=== PATIENT | male | born 1940 | race Caucasian/White ===

== ENCOUNTER 2018-01-31 10:30 | Observation (INO) | payer OTHER, MEDICARE ==
[2018-01-31 11:17] LABS: Absolute Lymphocytes (CBC) 3.2 K/uL (0.7-4.9); Absolute Monocytes 2.4 K/uL (0.1-1.3); Basophils % 0.7 % (0-1.3); Eosinophils % 0.1 % (0-4.4); Hematocrit 46.2 % (39.6-49.0); MCV 89.3 fL (80-100); MPV 10.3 fL (7.6-11.3); Monocytes % 9.5 % (3.3-12.3); RBC Red Blood Cell Count 5.18 M/uL (4.33-5.43)
[2018-01-31 11:29] LABS: Protime INR 1.05
--- NOTE | 2018-01-31 11:32 | RAD REPORT ---
EXAM DESCRIPTION: RAD - Chest Single View - 01/31/2018 11:26 am CLINICAL HISTORY: hypotension, weakness Chest pain. COMPARISON: Chest Pa And Lat (2 Views) dated 02/08/2017; Chest Pa And Lat (2 Views) dated 08/18/2016; C HEST SINGLE VIEW dated 04/11/2013; CHEST PA AND LAT 2 VIEW dated 01/20/2009 FINDINGS: Portable technique limits examination quality. Mild linear subsegmental atelectasis in both lung bases. The heart is normal in size. No displaced fr actures. IMPRESSION: No acute intrathoracic process suspected.
[2018-01-31 11:35] LABS: Blood Morphology Comment NOT SEEN (NOT SEEN); Platelet Estimate ADEQ; Urine White Blood Cell Casts OK
[2018-01-31] MEDS ORDERED: NA CHLORIDE 0.9% 1,000 ML ONE (11:36)
[2018-01-31 11:42] LABS: ALT/SGPT 39 U/L (12-78); AST/SGOT 21 U/L (15-37); Albumin 3.2 g/dL (3.4-5.0); Alkaline Phosphatase 55 U/L (45-117); BUN Blood Urea Nitrogen 28 mg/dL (7-18); Bicarbonate 32 mmol/L (21-32); Bilirubin Direct 0.2 mg/dL (0-0.2); Bilirubin Total 0.7 mg/dL (0.2-1.0); CKMB Creatine Kinase MB < 1.0 ng/mL (0.3-3.6); Creatine Phosphokinase 36 U/L (39-308); Glucose Level 105 mg/dL (74-106); Magnesium 2.1 mg/dL (1.8-2.4); NT PRO-BNP 142 pg/mL (<450); Protein, Total 6.9 g/dL (6.4-8.2); Sodium Level 143 mmol/L (136-145)
[2018-01-31 11:54] LABS: Potassium 2.9 mmol/L (3.5-5.1)
--- NOTE | 2018-01-31 12:03 | EKG ---
Test Date: 2018-01-31 Test Time: 11:14:13 Honest [employer] Member: JUAN MEASUREMENT RESULTS: Intervals: Rate: 78 NV: 144 QRSD: 102 QT: 394 QTc: 449 Clay: P: 58 NV: 144 QRS: 19 T: 68 INTERPRETIVE STATEMENTS: Normal sinus rhythm Normal ECG Compared to ECG 02/08/2017 13:33:22 No significant changes Electronically Signed On 01-31-18 12:03:22 CDT by Lloyd Gonzalez
[2018-01-31] MEDS ORDERED: POTASSIUM CL SA 10 MEQ TAB PO ONE (12:18)
[2018-01-31] MEDS ORDERED: NS KCL 40MEQ 40 MEQ/1,000 ML BAG IV SCH (12:30)
--- NOTE | 2018-01-31 14:02 | ER ---
Nurse's Notes [facility] Name: Kale Kennedy Age: 77 yrs Sex: Male : 1940 Arrival Date: 01/31/2018 Time: 10:32 Bed 5 Private MD: Teto Hastings C Diagnosis: Dehydration;Hypokalemia;Weakness;Orthostatic hypotension;Elevated white blood cell count Presentation: 01/31 10:44 Presenting complaint: Patient states: was doing yardwork, when he became extremely sg dizzy and weak. reports having dizziness for several years but never this bad, went inside his home to take a BP, readings of 88/56, with the lowest being 72/54, denies pain or SOB, reports family hx of heart failure but no isssues of his own. Transition of care: patient was not received from another setting of care. Onset of symptoms was January 31, 2018. Risk Assessment: Do you want to hurt yourself or someone else? Patient reports no desire to harm self or others. Initial Sepsis Screen: Does the patient meet any 2 criteria? No. Patient's initial sepsis screen is negative. Does the patient have a suspected source of infection? No. Patient's initial sepsis screen is negative. Care prior to arrival: None. 10:44 Method Of Arrival: Ambulatory sg 10:44 Acuity: CAROLYNN 3 sg Historical: - Allergies: 10:33 No Known Allergies; sg - Home Meds: 10:47 Simvastatin Oral [Active]; Cimetidine Oral [Active]; Pulmicort Inhl [Active]; Combivent sg Inhl [Active]; metoprolol succinate oral oral [Active]; amlodipine oral [Active]; clopidogrel oral oral [Active]; - PMHx: 10:34 Asthma; GERD; Hypertension; CVA; sg - PSHx: 10:33 Appendectomy; Knee surgery; Hernia repair; sg - Immunization history:: Adult Immunizations unknown. - Social history:: Smoking status: Patient/guardian denies using tobacco. - Ebola Screening: : Patient negative for fever greater than or equal to 101.5 degrees Fahrenheit, and additional compatible Ebola Virus Disease symptoms Patient denies exposure to infectious person Patient denies travel to an Ebola-affected area in the 21 days before illness onset No symptoms or risks identified at this time. Screenin:00 Abuse screen: Denies threats or abuse. Denies injuries from another. Nutritional sv screening: No deficits noted. Tuberculosis screening: No symptoms or risk factors identified. Fall Risk None identified. Assessment: 11:00 General: Appears in no apparent distress. comfortable, well developed, Behavior is sv calm, cooperative, appropriate for age. Pain: Denies pain. Neuro: Level of Consciousness is awake, alert, obeys commands, Oriented to person, place, time, situation, Moves all extremities. Full function Gait is steady, Speech is normal, Reports lightheaded. Cardiovascular: Patient's skin is warm and dry. Pulses are 3+ in right radial artery and left radial artery Rhythm is sinus rhythm. Respiratory: Respiratory effort is even, unlabored, Respiratory pattern is regular, symmetrical. GI: Abdomen is flat. : No signs and/or symptoms were reported regarding the genitourinary system. EENT: No signs and/or symptoms were reported regarding the EENT system. Derm: Skin is pink, warm \T\ dry. Musculoskeletal: No signs and/or symptoms reported regarding the musculoskeletal system. 12:23 Reassessment: Patient appears in no apparent distress at this time. No changes from sv previously documented assessment. Patient and/or family updated on plan of care and expected duration. Pain level reassessed. Patient is alert, oriented x 3, equal unlabored respirations, skin warm/dry/pink. 12:45 Reassessment: Patient appears in no apparent distress at this time. Patient and/or sv family updated on plan of care and expected duration. Pain level reassessed. Patient is alert, oriented x 3, equal unlabored respirations, skin warm/dry/pink. Patient states symptoms have improved. 13:01 Reassessment: Pt given a food tray. sv 14:00 Reassessment: Patient appears in no apparent distress at this time. Patient and/or sv family updated on plan of care and expected duration. Pain level reassessed. Patient is alert, oriented x 3, equal unlabored respirations, skin warm/dry/pink. Patient states symptoms have improved. Vital Signs: 10:45 BP 109 / 69; Pulse 99; Resp 17; Pulse Ox 95% on R/A; Pain 0/10; sg 10:47 BP 118 / 64 Sitting; sg 10:49 BP 83 / 60 LA Standing; Pulse 117 MON; sg 11:00 BP 130 / 70 LA Sitting (auto/reg); Pulse 95; Resp 22; Pulse Ox 99% ; sv 11:34 Temp 98.6(O); dh3 11:49 BP 106 / 64; Pulse 72; Resp 22; Pulse Ox 94% on R/A; sv 12:32 BP 124 / 62; Pulse 68 MON; Resp 16; Pulse Ox 98% ; sv 13:04 BP 140 / 70 Supine; Pulse 68; Resp 20; Pulse Ox 98% on R/A; dh3 13:06 BP 153 / 75 Sitting; Pulse 75; Resp 25; Pulse Ox 99% on R/A; dh3 13:08 BP 122 / 79 Standing; Pulse 86; Resp 32; Pulse Ox 100% on R/A; dh3 13:32 BP 130 / 69; Pulse 78 MON; Resp 20; Pulse Ox 96% on R/A; sv 14:33 BP 127 / 67; Pulse 76; Resp 20; Pulse Ox 99% ; sv 12:32 Sinus Rhythm sv 13:32 Sinus Rhythm sv ED Course: 10:32 Patient arrived in ED. sb2 10:32 Teto Hastings MD is Private Physician. sb2 10:33 Arm band placed on. sg 10:45 Triage completed. sg 10:51 [facility] Miller [facility]C [facility] kb 10:51 Delbert Montoya MD is Attending Physician. kb 11:00 Patient has correct armband on for positive identification. Placed in gown. Bed in low sv position. Call light in reach. Adult w/ patient. office services clerk on. Pulse ox on. NIBP on. Door closed. Warm blanket given. Head of bed elevated. 11:05 Initial lab(s) drawn, by dc, sent to lab. Inserted saline lock: 20 gauge in right sv antecubital area, using aseptic technique. Blood collected. Flushed right antecubital with 5 ml normal saline. 11:14 Radha Ham, ARATI is Primary Nurse. sv 11:20 X-ray completed. Portable x-ray completed in exam room. Patient tolerated procedure jb2 well. 11:23 XRAY Chest (1 view) In Process Unspecified. EDMS 11:28 EKG done, by registered radiologic technologist. reviewed by Mallory CASAS. at1 14:01 Teto Hastings MD is Hospitalizing Provider. kb 14:44 No provider procedures requiring assistance completed. Patient admitted, IV remains in sv place. intact. Administered Medications: 11:33 Drug: NS 0.9% 1000 ml Route: IV; Rate: 1000 ml; Site: right antecubital; hb 12:45 Follow up: Response: No adverse reaction; IV Status: Completed infusion; IV Intake: sv 1000ml 12:45 Drug: NS 0.9% with KCl 40 mEq/L 1000 ml Route: IV; Rate: calculated rate; Site: right sv antecubital; 14:45 Follow up: Response: No adverse reaction; IV Status: Infusion continued upon admission sv 12:45 Drug: Potassium Chloride 20 mEq Route: PO; sv 13:32 Follow up: Response: No adverse reaction sv Intake: 12:45 IV: 1000ml; Total: 1000ml. sv Outcome: 14:01 Decision to Hospitalize by Provider. kb 14:45 Admitted to Tele accompanied by tech, family with patient, via wheelchair, room 413, sv with chart, Report called to Arlin BROUSSARD 14:45 Condition: stable 14:45 Instructed on the need for admit. 15:10 Patient left the ED. sv Signatures: Dispatcher [employer] EDMS Mallory Miller, WELD TECHNICIAN-C WELD TECHNICIAN-CkRadha Mayes, RN RN Donavan Gage, RN RN Manfred Brice2 Kimberley powell, java technical manager EKG Tat1 Barbara Vale, RN RN Michelle Bowles3 Adriana Galindo2 Corrections: (The following items were deleted from the chart) 10:57 10:47 BP 118 / 64; sg sg 12:32 12:32 BP 124 / 62; Pulse 68bpm; Resp 16bpm; Pulse Ox 98%; sv sv
--- NOTE | 2018-01-31 14:02 | EDPHYS ---
Physician Documentation [facility] Name: Kale Kennedy Age: 77 yrs Sex: Male : 1940 Arrival Date: 01/31/2018 Time: 10:32 Bed 5 Private MD: Teto Hastings C ED Physician Delbert Montoya HPI: 01/31 11:27 This 77 yrs old Male presents to ER via Ambulatory with complaints of Blood kb Pressure Problem - LOW. 11:27 The patient presents with dizziness, generalized weakness, lightheadedness. Onset: The kb symptoms/episode began/occurred this morning. Context: occurred at home, outdoors, occurred while the patient was doing yard work. just prior to the episode the patient experienced no apparent symptoms. Modifying factors: The symptoms are alleviated by nothing, the symptoms are aggravated by standing up. Associated signs and symptoms: Pertinent positives: weakness, dizziness, light-headedness. Severity of symptoms: At their worst the symptoms were moderate in the emergency department the symptoms have improved. Patient's baseline: Neuro: alert and fully oriented, Motor: no deficits, Ambulation: walks without assistance, Speech: normal, The patient has a previous history of CVA. The patient has experienced similar episodes in the past, but today's symptoms are worse, today's symptoms are similar. The patient has not recently seen a physician. Pt states he has been lightheaded/dizzy upon standing for the last 2-3 months. States he was cutting the grass this morning and his symptoms got a lot worse. Reports dizziness that made him have to lay down in the yard and weakness that made him unable to lift his legs off the ground. He checked his bp after that and it was as low as 70s/50s. Reports he called Dr Hastings to make an appt and was told to come to the ER. . Historical: - Allergies: 10:33 No Known Allergies; sg - Home Meds: 10:47 Simvastatin Oral [Active]; Cimetidine Oral [Active]; Pulmicort Inhl [Active]; Combivent sg Inhl [Active]; metoprolol succinate oral oral [Active]; amlodipine oral [Active]; clopidogrel oral oral [Active]; - PMHx: 10:34 Asthma; GERD; Hypertension; CVA; sg - PSHx: 10:33 Appendectomy; Knee surgery; Hernia repair; sg - Immunization history:: Adult Immunizations unknown. - Social history:: Smoking status: Patient/guardian denies using tobacco. - Ebola Screening: : Patient negative for fever greater than or equal to 101.5 degrees Fahrenheit, and additional compatible Ebola Virus Disease symptoms Patient denies exposure to infectious person Patient denies travel to an Ebola-affected area in the 21 days before illness onset No symptoms or risks identified at this time. ROS: 11:25 Constitutional: Negative for fever, chills, and weight loss, Cardiovascular: Negative kb for chest pain, palpitations, and edema, Respiratory: Negative for shortness of breath, cough, wheezing, and pleuritic chest pain, Abdomen/GI: Negative for abdominal pain, nausea, vomiting, diarrhea, and constipation, Back: Negative for injury and pain, : Negative for injury, bleeding, discharge, and swelling, MS/Extremity: Negative for injury and deformity, Skin: Negative for injury, rash, and discoloration. 11:25 Neuro: Positive for dizziness, weakness. Exam: 11:16 ECG was reviewed by the Attending Physician. kb 11:25 Constitutional: This is a well developed, well nourished patient who is awake, alert, kb and in no acute distress. Head/Face: Normocephalic, atraumatic. Chest/axilla: Normal chest wall appearance and motion. Nontender with no deformity. No lesions are appreciated. Cardiovascular: Regular rate and rhythm with a normal S1 and S2. No gallops, murmurs, or rubs. Normal PMI, no JVD. No pulse deficits. Respiratory: Lungs have equal breath sounds bilaterally, clear to auscultation and percussion. No rales, rhonchi or wheezes noted. No increased work of breathing, no retractions or nasal flaring. Abdomen/GI: Soft, non-tender, with normal bowel sounds. No distension or tympany. No guarding or rebound. No evidence of tenderness throughout. Back: No spinal tenderness. No costovertebral tenderness. Full range of motion. Skin: Warm, dry with normal turgor. Normal color with no rashes, no lesions, and no evidence of cellulitis. MS/ Extremity: Pulses equal, no cyanosis. Neurovascular intact. Full, normal range of motion. Neuro: Awake and alert, GCS 15, oriented to person, place, time, and situation. Cranial nerves II-XII grossly intact. Motor strength 5/5 in all extremities. Sensory grossly intact. Cerebellar exam normal. Normal gait. Vital Signs: 10:45 BP 109 / 69; Pulse 99; Resp 17; Pulse Ox 95% on R/A; Pain 0/10; sg 10:47 BP 118 / 64 Sitting; sg 10:49 BP 83 / 60 LA Standing; Pulse 117 MON; sg 11:00 BP 130 / 70 LA Sitting (auto/reg); Pulse 95; Resp 22; Pulse Ox 99% ; sv 11:34 Temp 98.6(O); dh3 11:49 BP 106 / 64; Pulse 72; Resp 22; Pulse Ox 94% on R/A; sv 12:32 BP 124 / 62; Pulse 68 MON; Resp 16; Pulse Ox 98% ; sv 13:04 BP 140 / 70 Supine; Pulse 68; Resp 20; Pulse Ox 98% on R/A; dh3 13:06 BP 153 / 75 Sitting; Pulse 75; Resp 25; Pulse Ox 99% on R/A; dh3 13:08 BP 122 / 79 Standing; Pulse 86; Resp 32; Pulse Ox 100% on R/A; dh3 13:32 BP 130 / 69; Pulse 78 MON; Resp 20; Pulse Ox 96% on R/A; sv 14:33 BP 127 / 67; Pulse 76; Resp 20; Pulse Ox 99% ; sv 12:32 Sinus Rhythm sv 13:32 Sinus Rhythm sv MDM: 10:51 Patient medically screened. kb 11:25 Data reviewed: vital signs, nurses notes. Data interpreted: Pulse oximetry: on room air kb is 99 %. Interpretation: normal. 11:31 ED course: orthostatic positive in triage. . kb 13:34 Counseling: I had a detailed discussion with the patient and/or guardian regarding: the kb historical points, exam findings, and any diagnostic results supporting the discharge/admit diagnosis, lab results, radiology results, the need for further work-up and treatment in the hospital. Physician consultation: A Venkata SMITH was contacted at 13:36, regarding admission, to the telemetry unit. patient's condition, and will see patient in inpatient room. 01/31 10:59 Order name: Basic Metabolic Panel; Complete Time: 11:55 kb 01/31 10:59 Order name: CBC with Diff; Complete Time: 11:37 kb 08/15 10:59 Order name: Ckmb; Complete Time: 11:55 kb 01/31 10:59 Order name: CPK; Complete Time: 11:55 kb 01/31 10:59 Order name: LFT's; Complete Time: 11:55 kb 01/31 10:59 Order name: Magnesium; Complete Time: 11:55 kb 01/31 10:59 Order name: NT PRO-BNP; Complete Time: 11:55 kb 01/31 10:59 Order name: PT-INR; Complete Time: 11:32 kb 01/31 10:59 Order name: Ptt, Activated; Complete Time: 11:32 kb 01/31 10:59 Order name: Troponin (emerg Dept Use Only); Complete Time: 11:37 kb 01/31 10:59 Order name: XRAY Chest (1 view); Complete Time: 11:32 kb 01/31 11:19 Order name: CBC Smear Scan; Complete Time: 11:37 EDMS 01/31 10:57 Order name: Orthostatic Blood Pressure; Complete Time: 10:57 sg 01/31 10:59 Order name: EKG; Complete Time: 10:59 kb 01/31 10:59 Order name: Cardiac monitoring; Complete Time: 11:15 kb 01/31 10:59 Order name: EKG - Nurse/Tech; Complete Time: 11:15 kb 01/31 10:59 Order name: IV Saline Lock; Complete Time: 11:15 kb 01/31 10:59 Order name: Labs collected and sent; Complete Time: 11:15 kb 01/31 10:59 Order name: O2 Per Protocol; Complete Time: 11:15 kb 01/31 10:59 Order name: O2 Sat Monitoring; Complete Time: 11:15 kb 01/31 12:24 Order name: Diet Regular; Complete Time: 12:25 mb4 EC:16 Rate is 78 beats/min. Rhythm is regular. WI interval is normal at 144 msec. QRS kb interval is normal at 102 msec. Clinical impression: Normal ECG. Reviewed by me. Administered Medications: 11:33 Drug: NS 0.9% 1000 ml Route: IV; Rate: 1000 ml; Site: right antecubital; hb 12:45 Follow up: Response: No adverse reaction; IV Status: Completed infusion; IV Intake: sv 1000ml 12:45 Drug: NS 0.9% with KCl 40 mEq/L 1000 ml Route: IV; Rate: calculated rate; Site: right sv antecubital; 14:45 Follow up: Response: No adverse reaction; IV Status: Infusion continued upon admission sv 12:45 Drug: Potassium Chloride 20 mEq Route: PO; sv 13:32 Follow up: Response: No adverse reaction sv Disposition: 19:05 Co-signature as Attending Physician, Delbert Montoya MD I agree with the assessment and kdr plan of care. Disposition: 01/31/18 14:01 Hospitalization ordered by Teto Hastings for Inpatient Admission. Preliminary diagnosis are Dehydration, Hypokalemia, Weakness, Orthostatic hypotension, Elevated white blood cell count. - Bed requested for Telemetry/MedSurg (Inpatient). - Status is Inpatient Admission. sv - Condition is Stable. - Problem is new. - Symptoms have improved. UTI on Admission? No Signatures: Dispatcher [employer] EDMS Mallory Miller, HOTEL DIRECTOR-C HOTEL DIRECTOR-Radha Hdz RN RN sv Woody, Diana, RN RN dw Gay, Steven, RN RN sg Rittger, Kevin, MD MD [facility] Barbara Vale RN RN Corrections: (The following items were deleted from the chart) 14:32 14:01 Hospitalization Ordered by A Venkata SMITH for Inpatient Admission. Preliminary dw diagnosis is Dehydration; Hypokalemia; Weakness; Orthostatic hypotension; Elevated white blood cell count. Bed requested for Telemetry/MedSurg (Inpatient). Status is Inpatient Admission. Condition is Stable. Problem is new. Symptoms have improved. UTI on Admission? No. kb 15:10 14:32 01/31/2018 14:01 Hospitalization Ordered by A Venkata SMITH for Inpatient Admission. sv Preliminary diagnosis is Dehydration; Hypokalemia; Weakness; Orthostatic hypotension; Elevated white blood cell count. Bed requested for Telemetry/MedSurg (Inpatient). Status is Inpatient Admission. Condition is Stable. Problem is new. Symptoms have improved. UTI on Admission? No. dw
[2018-01-31] MEDS ORDERED: ACETAMINOPHEN 500 MG TAB PO PRN (15:37)
[2018-01-31 16:16] VITALS: BMI 26.4
[2018-01-31 20:25] VITALS: O2SAT 96
[2018-01-31] MEDS: NA CHLORIDE 0.9% 1,000 ML IV SCH (20:43)
[2018-01-31 20:47] LABS: Urine Appearance CLEAR; Urine Bilirubin NEGATIVE (NEG); Urine Blood 2+ (NEG); Urine Color YELLOW; Urine Glucose TRACE (NEG); Urine Protein 1+ (NEG); Urine Urobilinogen 0.2 mg/dL (0.2-1.0); Urine pH 5.5 (5.0-7.0)
[2018-01-31 20:54] LABS: Urine Microscopic Reflex ORDER UMIC
[2018-01-31 22:20] LABS: Urine Culture Reflex Order NOT NEEDED
[2018-01-31 22:22] LABS: Urine Bacteria <20 /HPF (NONE SEEN); Urine Mucus 4+ /HPF (NONE SEEN); Urine RBC <5 /HPF (NONE SEEN)
[2018-01-31] MEDS ORDERED: HOME MED 1 EA UNK (Ipratropium/Albuterol Sulfate [Combivent Respimat 20-100 Mcg] 1 PUFF) IH PRN (23:13)
[2018-02-01] MEDS: NA CHLORIDE 0.9% 1,000 ML IV SCH ×2 (04:07→06:33)
--- NOTE | 2018-02-01 05:14 | HP ---
Date of Admission: 01/31/2018 Chief Complaint: Feeling weak and dizzy. History Of Present Illness: This is a 77-year-old male patient who called my office today with compl aints of feeling weak, dizzy, and his blood pressure was very low at home, so with that in mind, he w as advised to come to emergency room. After he was evaluated in ER, he was found to have low blood p ressure with acute renal failure, volume depletion, and elevated white count and he was admitted to [facility]. He denies any fever, chills, vomiting, or diarrhea. No bleeding. He says that in last 2 weeks he is slowly having this problem of weakness spell from time to time and today was the worst spell while he was working in the yard, the patient says that he could not even walk and he had to s it down because he was very weak. He felt like he had no energy left in his body at all. There was no syncope, no chest pain, no shortness of breath. The patient says he has never felt this weak in h is life before. He could not put 1 step in front of another step. After he came into ER, he was adm itted to the hospital. Once he received IV fluid, he started feeling better. Denies any fever, chil ls, cough, cold, or congestion. No urinary complaints. No GI complaints. Allergies: NO KNOWN ALLERGIES. Medications: Amlodipine 5 mg daily, clopidogrel 75 mg daily, Combivent inhaler 1 puffs 4 times a day , metoprolol 50 mg, takes half a tablet 2 times a day; omeprazole 40 mg daily, Pulmicort inhaler 1 pu ff daily, simvastatin 40 mg p.o. daily. Review of Systems: Constitutional: As mentioned above. All other systems reviewed and negative. Past Medical History: Significant for hypertension, mixed hyperlipidemia, diverticulosis, impaired f asting glucose, benign prostatic hypertrophy with elevated PSA, and asthma. Past Surgical History: Arthroscopic knee surgery, appendectomy, hernia repair. Family History: Significant for hyperlipidemia, asthma, stroke, congestive heart failure. Social History: Prior history of smoking, not at the present time. Use of alcohol negative. Physical Examination: Vital Signs: When he came into emergency room, temperature 98.6, pulse 99, respiratory rate 17, bloo d pressure 109/69. The lowest blood pressure in the emergency room was 83/60. His blood pressure at home was 75/59 when he checked it when he was feeling bad before he came into the emergency room. L ast blood pressure 141/61 this evening. General: Awake, alert, oriented, not in distress. HEENT: Head atraumatic, normocephalic. Conjunctivae nonerythematous. Sclerae white. Mouth, no thr ush or edema noted. Ears/Nose, no mass, lesion, discharge noted. Neck: Supple. No JVD, lymph nodes, bruit, thyromegaly noted. Lungs: Bilateral good equal air entry. Clear to auscultation. No rhonchi. No rales. Heart: Normal heart sounds, no murmur or gallop. Abdomen: Soft, bowel sounds normal. No guarding, rigidity, tenderness, mass, hepatosplenomegaly, dis tention, or bruit noted. Extremities: No leg edema. No calf tenderness. Skin: No rash, ulcer, cellulitis. Lymphatics: No lymph node enlargement in neck, supraclavicular, infraclavicular region. Neuro: No focal neurological deficit. Chest: Unremarkable. External Genitalia: Deferred. Rectal: Deferred. Laboratory Data: White count 24.8, hemoglobin 15.5, platelets 313. PT and PTT normal. Sodium 143, potassium 2.9, chloride 100, bicarb 32, BUN 28, creatinine 2, glucose 105. Liver function tests unre markable. CPK 36, MB less than 1.0, troponin less than 0.02 x3. Urinalysis: 2+ blood, 1+ protein, otherwise it is negative. His chest x-ray, no acute cardiopulmonary changes. Electrocardiogram: No rmal sinus rhythm, normal EKG. Impression: 1.Acute kidney failure. 2.Volume depletion. 3.Hypokalemia. 4.Leukocytosis. 5.Hypertension. 6.Mixed hyperlipidemia. 7.Benign prostatic hypertrophy. 8.Diverticulosis. 9.Mild intermittent asthma. Plan: Admit the patient to hospital for further evaluation and management of this problem. [facility] is appropriate for inpatient and is expected to spend 2 midnights in hospital. We will go ahead and give IV fluid. Home medications will be continued per order. We will repeat blood work tomorrow morning. There is no evidence of any infection. His elevated WBC count is probably reactive more t kaminski any infectious etiology at this point. Clinically, there is no evidence of any infection anywher e. We will repeat blood work tomorrow morning. We will hold his antihypertensive medication at this point and decide how to adjust his medication prior to discharge. Home medications will be continue d per order. Details and plan of treatment discussed with the patient. I will see him tomorrow morn ing for followup. Potassium will be replaced per order. BRIAN/MODGopi Voice ID: [id number]
[2018-02-01 06:05] LABS: Absolute Lymphocytes (CBC) 4.7 K/uL (0.7-4.9); Absolute Monocytes 1.4 K/uL (0.1-1.3); Absolute Neutrophil 9.8 K/uL (1.8-8.0); Basophils % 0.5 % (0-1.3); Eosinophils % 0.9 % (0-4.4); Hematocrit 40.1 % (39.6-49.0); Lymphocytes % 29.2 % (15.3-44.8); MCH 30.6 pg (27.0-35.0); MCV 89.6 fL (80-100); Monocytes % 8.6 % (3.3-12.3); RBC Red Blood Cell Count 4.48 M/uL (4.33-5.43)
[2018-02-01 06:22] LABS: Potassium 3.3 mmol/L (3.5-5.1)
[2018-02-01] MEDS ORDERED: POTASSIUM CL SA 10 MEQ TAB PO ONE (07:56)
[2018-02-01] MEDS ORDERED: FLUCONAZOLE 200 MG PO SCH (09:00)
[2018-02-01] MEDS ORDERED: CIMETIDINE 200 MG PO SCH (09:00)
[2018-02-01] MEDS ORDERED: HOME MED 1 EA UNK (Metoprolol Tartrate [Lopressor*] 25 MG) PO SCH (09:00)
[2018-02-01] MEDS ORDERED: BUDESONIDE 180 MCG IH SCH (09:00)
[2018-02-01] MEDS ORDERED: ASPIRIN EC 81 MG TAB PO SCH (09:00)
[2018-02-01 09:25] VITALS: BP 155/70; TEMP 97.6
[2018-02-01] MEDS ORDERED: HOME MED 1 EA UNK (Clopidogrel Bisulfate [Plavix*] 75 MG) PO SCH (21:00)
[2018-02-01] MEDS ORDERED: HOME MED 1 EA UNK (Simvastatin [Zocor*] 40 MG) PO SCH (21:00)
--- NOTE | 2018-02-02 18:07 | DS ---
Date of Discharge: 02/01/2018 Disposition: Discharged to go home. Physical Examination: HEENT: Unremarkable. Lungs: Clear to auscultation. Heart: Sounds normal. Abdomen: Soft. Bowel sounds normal. No guarding, rigidity, tenderness, or distention. Extremities: No leg edema. Laboratory Data: Labs done during this hospitalization; initial white count yesterday 24.8, hemoglob in 15.5, platelets 313. This morning; white count 16.1, hemoglobin 13.7, platelets 235. Yesterday; sodium 143, potassium 2.9, chloride 100, bicarb 32, BUN 28, creatinine 2.0, glucose 105. Liver funct ion tests unremarkable. Troponin less than 0.02 x3. This morning; BUN 20, creatinine 1.10, potassiu m 3.3. Hospital Course: A 77-year-old male patient, who was admitted to the hospital with complaints of fee ling weak and dizzy. Please see dictated H and P for more information. After the patient came into emergency room, was evaluated and admitted to the hospital with low blood pressure, acute kidney inju ry, volume depletion type of problem. His potassium was low as well. Potassium replacement was give n per order. IV fluid was given. He is feeling much better. His blood pressure has started to come up this morning. No more hypotension noted and the patient was feeling fine, tolerating diet very w ell. He was discharged to go home in stable with following discharge medications and instructions. Final Diagnoses: 1.Acute kidney injury. 2.Volume depletion. 3.Hypokalemia. 4.Leukocytosis, reactive. 5.Mixed hyperlipidemia. 6.Benign prostatic hypertrophy. 7.Diverticulosis. 8.Mild intermittent asthma. Discharge Medications And Instructions: 1.Continue all prior home medications. 2.The patient was instructed to check blood pressure before taking amlodipine and metoprolol and if systolic blood pressure is less than 120, then to skip the dose at that particular time. All these i nstructions personally were explained to him this morning when I saw him. The patient was advised to record his blood pressure and follow up at my office in 2 weeks with his blood pressure readings. BRIAN/MODL Voice ID: [id number] Report ID: [id number]
== END 2018-02-01 10:17 | disposition home or self-care (01) ==
LOC: ER 10:30 → ERHOLD 14:03 → INTOOBSV 14:03 → 4TH 14:45
PROVIDERS: ADMIT Internal Medicine; ATTEND Internal Medicine
DX: N17.9 Acute kidney failure, unspecified (principal); E86.9 Volume depletion, unspecified; E87.6 Hypokalemia; D72.829 Elevated white blood cell count, unspecified; E78.2 Mixed hyperlipidemia; N40.0 Benign prostatic hyperplasia without lower urinary tract symptoms; K57.90 Diverticulosis of intestine, part unspecified, without perforation or abscess without bleeding; J45.20 Mild intermittent asthma, uncomplicated
CPT/HCPCS: 36415; 71045; 80048 ×2; 80076; 82550; 82553; 83735; 83880; 84484 ×3; 85025 ×2; 85610; 85730; 87088; 93005; 96360; 96361; 99285; G0378 ×2; J7030 ×2; 81003; 81015; 87086

== ENCOUNTER 2019-09-28 17:03 | Emergency (ER) | payer OTHER, MEDICARE ==
[2019-09-28] MEDS ORDERED: NA CHLORIDE 0.9% 1,000 ML ONE (17:43)
[2019-09-28 18:24] LABS: Urine Appearance TURBID; Urine Blood 3+ (NEG); Urine Color RED; Urine Glucose TRACE (NEG); Urine Protein 3+ (NEG); Urine Specific Gravity 1.015 (1.005-1.030)
[2019-09-28 18:48] LABS: Urine Bilirubin ND (NEG)
[2019-09-28 18:52] LABS: Urine Bacteria <20 /HPF (NONE SEEN); Urine Culture Reflex Order REFLEXED; Urine RBC TNTC /HPF (NONE SEEN)
--- NOTE | 2019-09-28 19:19 | EDPHYS ---
Physician Documentation [facility] Name: Kale Kennedy Age: 79 yrs Sex: Male : 1940 Arrival Date: 09/28/2019 Time: 17:06 Bed 17 Private MD: Teto Hastings C ED Physician Delbert Montoya HPI: 09/27 17:29 This 79 yrs old Male presents to ER via Ambulatory with complaints of Urinary pm1 Problem. 17:29 The patient presents with urinary symptoms, Hematuria. Onset: The symptoms/episode pm1 began/occurred 3 day(s) ago. Modifying factors: The symptoms are alleviated by nothing, the symptoms are aggravated by nothing. Associated signs and symptoms: Pertinent positives: hematuria, Pertinent negatives: abdominal pain, dysuria, fever, nausea, vomiting. Severity of symptoms: in the emergency department the symptoms are unchanged. The patient has experienced similar episodes in the past, a few times, patient reports that he usually has one episode of hematuria that resolves after ejaculation. Patient engaged in sex with his before the hematuria. Patient with history of ED and TURP. He did not have intercourse but "they masturbated with each other." He was not surprised with the presence of the hematuria but he was surprised that it lasted this long. Historical: - Allergies: 17:13 No Known Allergies; ll1 - PMHx: 17:13 GERD; Asthma; Hypertension; CVA; ll1 - PSHx: 17:13 Appendectomy; Hernia repair; Knee surgery; ll1 - Immunization history:: Flu vaccine is up to date. - Social history:: Smoking status: Patient/guardian denies using tobacco, the patient reports quitting approximately 33 years ago, Patient/guardian denies using alcohol, street drugs, IV drugs. ROS: 17:29 Constitutional: Negative for fever, chills, and weight loss, Cardiovascular: Negative pm1 for chest pain, palpitations, and edema, Respiratory: Negative for shortness of breath, cough, wheezing, and pleuritic chest pain, Abdomen/GI: Negative for abdominal pain, nausea, vomiting, diarrhea, and constipation, Back: Negative for injury and pain. 17:29 MS/Extremity: Negative for injury and deformity, Skin: Negative for injury, rash, and discoloration. 17:29 Neuro: Negative for headache, weakness, numbness, tingling, and seizure. 17:29 : Positive for hematuria, Negative for burning with urination, difficulty urinating. Exam: 17:29 Constitutional: This is a well developed, well nourished patient who is awake, alert, pm1 and in no acute distress. Head/Face: Normocephalic, atraumatic. Chest/axilla: Normal chest wall appearance and motion. Nontender with no deformity. No lesions are appreciated. 17:29 Back: No spinal tenderness. No costovertebral tenderness. Full range of motion. Skin: Warm, dry with normal turgor. Normal color with no rashes, no lesions, and no evidence of cellulitis. MS/ Extremity: Pulses equal, no cyanosis. Neurovascular intact. Full, normal range of motion. 17:29 Cardiovascular: Exam negative for acute changes, Rate: normal, Pulses: no pulse deficits are appreciated. 17:29 Respiratory: Exam negative for acute changes, respiratory distress, shortness of breath. 17:29 Abdomen/GI: Inspection: abdomen appears normal, Palpation: abdomen is soft and non-tender, in all quadrants, mass, is not appreciated, rebound tenderness, is not appreciated. 17:29 Neuro: Exam negative for acute changes, motor deficits, Orientation: is normal, Motor: is normal, Gait: is steady, at a normal pace, without difficulty. Vital Signs: 17:08 BP 163 / 80; Pulse 96; Resp 18; Temp 98.2; Pulse Ox 95% ; Weight 85.28 kg; Height 5 ft. ll1 9 in. (175.26 cm); Pain 0/10; 17:08 Body Mass Index 27.76 (85.28 kg, 175.26 cm) ll1 MDM: 17:16 Patient medically screened. pm1 17:53 Data reviewed: vital signs. Data interpreted: Pulse oximetry: on room air is 95 %. pm1 Interpretation: normal. 17:59 Refusal of service: The patient/guardian displays adequate decision making capability pm1 and despite a detailed discussion of alternatives, benefits, risks, and consequences refuses: CT Scan, all lab tests, Patient does not want the CT scan or labs. He was hoping to just get a Drake catheter with a leg bag. Explained to the patient that he is able to urinate so placing a Drake would likely cause more harm than good such as causing a urinary tract infection. 19:18 Counseling: I had a detailed discussion with the patient and/or guardian regarding: the pm1 historical points, exam findings, and any diagnostic results supporting the discharge/admit diagnosis, lab results, the need for outpatient follow up, a urologist, to return to the emergency department if symptoms worsen or persist or if there are any questions or concerns that arise at home. 09/27 18:21 Order name: Urinalysis W/Microscopic; Complete Time: 19:18 [facility] 09/27 18:53 Order name: Urine Culture [facility] 09/27 17:28 Order name: Urine Dipstick-Ancillary (obtain specimen); Complete Time: 17:36 pm1 Administered Medications: 18:24 Not Given (Patient Refused): NS 0.9% 1000 ml IV at 1000 ml once em 19:20 Drug: Rocephin (cefTRIAXone) 1 grams Route: IM; Site: right deltoid; sg Disposition: 09/28/19 19:18 Discharged to Home. Impression: Hematuria, unspecified, Urinary tract infection, site not specified. - Condition is Stable. - Discharge Instructions: Hematuria, Adult, Urinary Tract Infection, Adult. - Prescriptions for Bactrim DS 800- 160 mg Oral Tablet - take 1 tablet by ORAL route every 12 hours for 10 days; 20 tablet. - Medication Reconciliation Form, Thank You Letter, Antibiotic Education, Prescription Opioid Use form. - Follow up: Emergency Department; When: As needed; Reason: Worsening of condition. Follow up: Private Physician; When: 2 - 3 days; Reason: Recheck today's complaints, Continuance of care, Re-evaluation by your physician. - Problem is new. - Symptoms have improved. Addendum: 09/30/2019 07:44 Co-signature as Attending Physician, Delbert Montoya MD I agree with the assessment and k dr plan of care. Signatures: Dispatcher [employer] [facility] Donavan Gage RN RN Delbert Montoya MD MD [facility] Luis Antonio Vizcarra NP ACCOUNTING FILE CLERK pm1 Molly Hernandez RN RN ll1 Waqar Rodarte RN em Corrections: (The following items were deleted from the chart) 09/27 18:21 17:29 UA MICROSCOPIC+U.LAB.BRZ ordered. [facility] 18:21 18:06 URINALYSIS+U.LAB.BRZ ordered. EDMS EDMS 18:23 17:28 IV Saline Lock ordered. pm1 em 18:23 17:28 Labs collected and sent ordered. pm1 em 19:36 19:18 09/28/2019 19:18 Discharged to Home. Impression: Hematuria, unspecified; Urinary sg tract infection, site not specified. Condition is Stable. Discharge Instructions: Hematuria, Adult. Forms are Medication Reconciliation Form, Thank You Letter, Antibiotic Education, Prescription Opioid Use. Follow up: Emergency Department; When: As needed; Reason: Worsening of condition. Follow up: Private Physician; When: 2 - 3 days; Reason: Recheck today's complaints, Continuance of care, Re-evaluation by your physician. Problem is new. Symptoms have improved. pm1
--- NOTE | 2019-09-28 19:19 | ER ---
Nurse's Notes [facility] Name: Kale Kennedy Age: 79 yrs Sex: Male : 1940 Arrival Date: 09/28/2019 Time: 17:06 Bed 17 Private MD: Teto Hastings C Diagnosis: Hematuria, unspecified;Urinary tract infection, site not specified Presentation: 09/27 17:08 Chief complaint: Patient states: Bloody urine for 3 days intermittently. Noticed blood ll1 clot in urine today. Slight dysuria. No fever. Coronavirus screen: Proceed with normal triage. Patient denies a cough. Patient denies shortness of breath or difficulty breathing. Patient denies measured and/or subjective temperature greater than 100.4F prior to today's visit. Patient denies travel on a cruise ship or to a country the [facility] currently lists as an affected area. Patient denies contact with known and/or suspected case of COVID-19. Ebola Screen: Patient denies travel to an Ebola-affected area in the 21 days before illness onset. Initial Sepsis Screen: Does the patient meet any 2 criteria? No. Patient's initial sepsis screen is negative. Risk Assessment: Do you want to hurt yourself or someone else? Patient reports no desire to harm self or others. Onset of symptoms was September 25, 2019. 17:08 Method Of Arrival: Ambulatory ll1 17:08 Acuity: CAROLYNN 3 ll1 Historical: - Allergies: 17:13 No Known Allergies; ll1 - PMHx: 17:13 GERD; Asthma; Hypertension; CVA; ll1 - PSHx: 17:13 Appendectomy; Hernia repair; Knee surgery; ll1 - Immunization history:: Flu vaccine is up to date. - Social history:: Smoking status: Patient/guardian denies using tobacco, the patient reports quitting approximately 33 years ago, Patient/guardian denies using alcohol, street drugs, IV drugs. Screenin:30 Abuse screen: Denies threats or abuse. Nutritional screening: No deficits noted. em Tuberculosis screening: No symptoms or risk factors identified. Fall Risk None identified. Assessment: 17:32 General: Appears in no apparent distress. comfortable, Behavior is calm, cooperative, em appropriate for age, Denies fever. Pain: Denies pain. Neuro: Level of Consciousness is awake, alert, obeys commands, Oriented to person, place, time, situation, Appropriate for age. Cardiovascular: Denies chest pain, Capillary refill < 3 seconds Patient's skin is warm and dry. Respiratory: Airway is patent Respiratory effort is even, unlabored, Respiratory pattern is regular, symmetrical. GI: Patient currently denies abdominal pain, nausea, vomiting. : Urine is venita blood, Reports blood in urine since Denies burning with urination, urinary frequency. Derm: Skin is intact, is healthy with good turgor, Skin is pink, warm \T\ dry. Musculoskeletal: Capillary refill < 3 seconds, Range of motion: intact in all extremities. 17:41 Reassessment: Patient appears in no apparent distress at this time. pt currently does em not want blood work, pt state's he is scared that he won't be able to urinate and would like to possibly get a catheter to prevent the occlusion, provider notified of pt request. Vital Signs: 17:08 BP 163 / 80; Pulse 96; Resp 18; Temp 98.2; Pulse Ox 95% ; Weight 85.28 kg; Height 5 ft. ll1 9 in. (175.26 cm); Pain 0/10; 17:08 Body Mass Index 27.76 (85.28 kg, 175.26 cm) ll1 ED Course: 17:06 Patient arrived in ED. mr 17:06 Teto Hastings MD is Private Physician. mr 17:12 Triage completed. ll1 17:13 Arm band placed on Patient placed in an exam room, on a stretcher. ll1 17:16 Luis Antonio Vizcarra NP is PHCP. pm1 17:16 Delbert Montoya MD is Attending Physician. pm1 17:21 Waqar Rodarte, RN is Primary Nurse. em 18:07 Radiology exam delayed due to lab results not completed at this time. (BUN/Creatinine). mw3 19:03 Primary Nurse role handed off by Waqar Rodarte, RN sg 19:03 Donavan Gage, AARTI is Primary Nurse. sg 19:10 Patient has correct armband on for positive identification. Pulse ox on. NIBP on. sg 19:30 No provider procedures requiring assistance completed. Patient did not have IV access sg during this emergency room visit. Administered Medications: 18:24 Not Given (Patient Refused): NS 0.9% 1000 ml IV at 1000 ml once em 19:20 Drug: Rocephin (cefTRIAXone) 1 grams Route: IM; Site: right deltoid; sg Outcome: 19:18 Discharge ordered by . pm1 19:30 Discharged to home ambulatory. sg 19:30 Condition: good 19:30 Discharge instructions given to patient, Instructed on discharge instructions, follow up and referral plans. medication usage, safety practices, Demonstrated understanding of instructions, follow-up care, medications, Prescriptions given X 1. 19:36 Patient left the ED. sg Signatures: Donavan Gage, RN RN sg Nahed Thomas Edgar RN RN em Luis Antonio Vizcarra, ROSAURA DIRECTOR OF GROUP COUNSELING PROGRAM pm1 Litzy Aguilar mw3 Molly Hernandez RN RN ll1
[2019-09-28] MEDS ORDERED: WATER FOR INJ,STERILE 10 ML ONE (19:26)
[2019-09-28] MEDS ORDERED: CEFTRIAXONE 1000 MG/VIAL ONE (19:26)
[2019-09-28 19:42] VITALS: BP 163/80; TEMP 98.2; O2SAT 95
== END 2019-09-28 19:36 | disposition home or self-care (01) ==
LOC: ER 17:03
DX: N39.0 Urinary tract infection, site not specified (principal); R31.9 Hematuria, unspecified; Z87.891 Personal history of nicotine dependence
CPT/HCPCS: 87088; 81001; 87086; 96372; 99283; J7030